=== PATIENT | female | born 1945 | race African-American/Black ===

== ENCOUNTER 2018-03-08 14:25 | Emergency (ER) | payer MEDICARE, MEDICAID ==
[~2018-03-08] VITALS: Ht 167.6 cm; Wt 130.0 kg
[~2018-03-08 14:25] MED LIST: AMLO5TAB88 PO; CALC0.253 PO; HYDR-1717; LOSA50TA20 PO
[2018-03-08] MEDS ORDERED: KETOROLAC 30MG/ML VIAL IV ONE (15:15)
[2018-03-08 15:42] LABS: BASOPHILS % 1.4 % (0.0-2.0); HEMATOCRIT. 34.2 % (36.0-48.0); HEMOGLOBIN. 10.9 g/dL (12.0-16.0); MEAN CORPUSCULAR HEMOGLOBIN 30.8 pg (28.0-32.0); MEAN CORPUSCULAR VOLUME 96.5 fL (81.0-99.0); MEAN PLATELET VOLUME 7.5 fl (7.4-10.4); MONOCYTES % 9.5 % (2.0-8.0); NEUTROPHILS % 45.1 % (40.0-76.0); PLATELET 319 x1000/uL (130-400); RED BLOOD CELL COUNT 3.55 mill/uL (4.2-5.4); RED CELL DISTRIBUTION WIDTH 18.7 % (11.6-14.6)
[2018-03-08 15:47] LABS: CHLORIDE 100 mEq/L (98-107)
[2018-03-08] MEDS ORDERED: KETOROLAC 60MG/2ML VIAL IM ONE (17:00)
[2018-03-08 19:54] VITALS: BP 140/64
== END 2018-03-08 20:00 ==
LOC: ER 14:45
DX: R51 Headache (principal); E87.5 Hyperkalemia; E11.22 Type 2 diabetes mellitus with diabetic chronic kidney disease; I12.0 Hypertensive chronic kidney disease with stage 5 chronic kidney disease or end stage renal disease; N18.6 End stage renal disease; J44.9 Chronic obstructive pulmonary disease, unspecified; I25.2 Old myocardial infarction; E88.09 Other disorders of plasma-protein metabolism, not elsewhere classified; H54.61 Unqualified visual loss, right eye, normal vision left eye; Z88.0 Allergy status to penicillin; Z99.2 Dependence on renal dialysis
CPT/HCPCS: 36415; 70450; 80053; 85025; 96372; 99285; J1885

== ENCOUNTER 2018-04-09 18:52 | Inpatient (IN) | payer MEDICARE, MEDICAID ==
[~2018-04-09] VITALS: Ht 167.6 cm; Wt 114.4 kg
[2018-04-09] MEDS ORDERED: SODIUM CHLORIDE 0.9% 250 ML IV ONE (18:54)
[2018-04-09 20:21] LABS: BG BASE EXCESS 2.1 mmol/L (-2.0-2.0); BG CARBOXYHEMOGLOBIN 0.3 % (0.5-1.5); BG DEOXYHEMOGLOBIN 1.4 % (0.0-5.0); BG FRACTION INSPIRED OXYGEN 28; BG HCO3 ACT 26.4 mmol/L (22.0-26.0); BG METHEMOGLOBIN 0.4 % (0.0-1.5); BG OXYGEN SATURATION 98.6 % (92.0-98.5); BG OXYHEMOGLOBIN 97.9 % (94.0-97.0); BG PCO2 40.1 mmHg (35.0-45.0); BG PH 7.437 (7.350-7.450); BG PO2 137.5 mmHg (75.0-100.0); BG SAMPLE SITE RIGHT RADIAL; BG TOTAL HEMOGLOBIN 10.8 g/dL (12.0-18.0); BG VENT MODE NASAL CANNULA
[2018-04-09 20:39] LABS: BASOPHILS % 0.6 % (0.0-2.0); EOSINOPHILS % 0.1 % (0.0-5.0); HEMATOCRIT. 29.9 % (36.0-48.0); HEMOGLOBIN. 9.5 g/dL (12.0-16.0); LYMPHOCYTES % 13.4 % (20.0-50.0); MEAN CORPUSCULAR VOLUME 94.7 fL (81.0-99.0); MEAN PLATELET VOLUME 7.8 fl (7.4-10.4); MONOCYTES % 7.3 % (2.0-8.0); NEUTROPHILS % 78.6 % (40.0-76.0); PLATELET 487 x1000/uL (130-400); RED BLOOD CELL COUNT 3.16 mill/uL (4.2-5.4); RED CELL DISTRIBUTION WIDTH 19.6 % (11.6-14.6)
[2018-04-09 20:44] LABS: CHLORIDE 96 mEq/L (98-107)
[2018-04-09 20:48] LABS: INR 1.1; PROTHROMBIN TIME 11.7 sec (9.4-11.6)
[2018-04-09 20:49] LABS: ETHANOL BLOOD < 10 mg/dL
[2018-04-09 20:50] LABS: AMMONIA 27 uMol/L (<32)
[2018-04-09 20:53] LABS: CREATINE KINASE 67 IU/L (26-192)
[2018-04-09] MEDS ORDERED: VANCOMYCIN 1 G PREMIX 200 ML IV SCH (21:15)
[2018-04-09] MEDS ORDERED: LEVOFLOXACIN 750MG PREMIX 150 ML IV ONE (21:15)
[2018-04-09] MEDS ORDERED: KCL 20MEQ/100ML PREMIX 100 ML IV ONE (21:15)
[2018-04-09] MEDS ORDERED: ASPIRIN 300MG SUPP PR ONE (21:15)
[2018-04-09] MEDS ORDERED: IPRATROPIUM/ALBUTEROL 0.5-3(2.5)MG/3ML NEB INH PRN (23:45)
[2018-04-09] MEDS ORDERED: CLONIDINE 0.1MG TABLET PO PRN (23:45)
[2018-04-09] MEDS ORDERED: ONDANSETRON HCL 4MG/2ML VIAL IV PRN (23:45)
[2018-04-09] MEDS ORDERED: DOCUSATE SODIUM 100MG CAPSULE PO PRN (23:45)
[2018-04-09] MEDS ORDERED: HYDROCODONE/ACETAMINOPHEN 5/325MG TABLET PO PRN (23:45)
[2018-04-09] MEDS ORDERED: LEVOFLOXACIN 500MG PREMIX 100 ML IV SCH (23:45)
[2018-04-10] VITALS (9 sets, daily range): BP systolic 79–117; BP diastolic 30–73
[2018-04-10] MEDS: ACETAMINOPHEN 325MG TABLET PO PRN (00:58)
[2018-04-10] MEDS ORDERED: DEXTROSE 50% WATER 50ML SYRINGE IV PRN (02:30)
[2018-04-10] MEDS ORDERED: VANCOMYCIN 500 MG PREMIX 100 ML IV NR (05:00)
[2018-04-10] MEDS: BLOOD SUGAR DIAGNOSTIC STRIP TEST SCH ×4 (05:51→21:18)
[2018-04-10] MEDS ORDERED: DIPHENHYDRAMINE 50MG/ML VIAL IV PRN (07:30)
[2018-04-10] MEDS ORDERED: MAGNESIUM/ALUMINUM HYDROXIDE/SIMETHICONE 30ML UDC PO PRN (07:30)
[2018-04-10] MEDS ORDERED: CLONIDINE 0.1MG TABLET PO PRN (07:30)
[2018-04-10] MEDS: INSULIN LISPRO 100 UNITS/ML SUBCUT SCH ×4 (08:00→21:00)
[2018-04-10 08:02] LABS: CHLORIDE 98 mEq/L (98-107)
[2018-04-10 08:07] LABS: BASOPHILS % 0.5 % (0.0-2.0); EOSINOPHILS % 0.1 % (0.0-5.0); HEMATOCRIT. 28.6 % (36.0-48.0); HEMOGLOBIN. 9.3 g/dL (12.0-16.0); LYMPHOCYTES % 16.4 % (20.0-50.0); MEAN CORPUSCULAR HEMOGLOBIN 30.8 pg (28.0-32.0); MEAN CORPUSCULAR VOLUME 94.8 fL (81.0-99.0); MEAN PLATELET VOLUME 7.9 fl (7.4-10.4); MONOCYTES % 8.4 % (2.0-8.0); NEUTROPHILS % 74.6 % (40.0-76.0); PLATELET 425 x1000/uL (130-400); RED BLOOD CELL COUNT 3.02 mill/uL (4.2-5.4); RED CELL DISTRIBUTION WIDTH 19.6 % (11.6-14.6)
[2018-04-10 08:10] LABS: CREATINE KINASE 46 IU/L (26-192); HDL CHOLESTEROL 49 mg/dL (40-59)
[2018-04-10 08:12] LABS: LDL CHOLESTEROL 46 mg/dL (5-100)
[2018-04-10 08:16] LABS: CREATINE KINASE MB FRACTION 2.8 ng/mL (0.5-3.6)
[2018-04-10] MEDS ORDERED: METOPROLOL TARTRATE 25MG TABLET PO SCH (09:00)
[2018-04-10] MEDS: ASPIRIN 81MG EC TABLET PO SCH (09:32)
[2018-04-10] MEDS: CLOPIDOGREL 75MG TABLET PO SCH (14:50)
[2018-04-10] MEDS: ENOXAPARIN 40MG/0.4ML SYR SUBCUT SCH (14:51)
[2018-04-10 14:55] LABS: PREALBUMIN 6.5 mg/dL (20.0-40.0)
[2018-04-10] MEDS: DOCUSATE SODIUM SUGAR FREE 100MG/10ML UDC PO SCH (17:00)
[2018-04-10] MEDS: METOPROLOL TARTRATE 25MG TABLET PO SCH (21:00)
[2018-04-10] MEDS: ATORVASTATIN CALCIUM 20MG TABLET PO SCH (21:36)
[2018-04-10] MEDS ORDERED: POTASSIUM CHLORIDE 10MEQ TABLET SR PO NR (23:43)
[2018-04-11] VITALS (9 sets, daily range): BP systolic 70–145; BP diastolic 30–75
[2018-04-11 06:14] LABS: BASOPHILS % 0.2 % (0.0-2.0); HEMATOCRIT. 29.8 % (36.0-48.0); HEMOGLOBIN. 9.5 g/dL (12.0-16.0); MEAN CORPUSCULAR HEMOGLOBIN 30.6 pg (28.0-32.0); MEAN CORPUSCULAR VOLUME 96.1 fL (81.0-99.0); MEAN PLATELET VOLUME 8.3 fl (7.4-10.4); MONOCYTES % 6.2 % (2.0-8.0); NEUTROPHILS % 81.6 % (40.0-76.0); PLATELET 379 x1000/uL (130-400); RED CELL DISTRIBUTION WIDTH 19.7 % (11.6-14.6)
[2018-04-11 06:22] LABS: CHLORIDE 98 mEq/L (98-107)
[2018-04-11] MEDS: BLOOD SUGAR DIAGNOSTIC STRIP TEST SCH ×4 (07:45→21:17)
[2018-04-11] MEDS: INSULIN LISPRO 100 UNITS/ML SUBCUT SCH ×4 (08:00→21:18)
[2018-04-11] MEDS: METOPROLOL TARTRATE 25MG TABLET PO SCH ×2 (08:48→21:00)
[2018-04-11] MEDS: DOCUSATE SODIUM SUGAR FREE 100MG/10ML UDC PO SCH ×2 (08:50→17:00)
[2018-04-11] MEDS: ASPIRIN 81MG EC TABLET PO SCH (08:50)
[2018-04-11] MEDS: CLOPIDOGREL 75MG TABLET PO SCH (08:54)
[2018-04-11] MEDS: ACETAMINOPHEN 325MG TABLET PO PRN (09:51)
[2018-04-11] MEDS: ENOXAPARIN 40MG/0.4ML SYR SUBCUT SCH (13:31)
[2018-04-11] MEDS: MIDODRINE HCL 5MG TABLET PO SCH ×2 (13:32→17:10)
[2018-04-11] MEDS ORDERED: LEVOFLOXACIN 500MG PREMIX 100 ML IV SCH (14:00)
[2018-04-11] MEDS ORDERED: VANCOMYCIN 1500MG in DEXTROSE 5% WATER 250ML IV NR (15:00)
[2018-04-11] MEDS ORDERED: NA PHOS,M-B/NA PHOS,DI-BA ENEMA 118ML PR NR (17:00)
[2018-04-11 19:39] LABS: ETHANOL BLOOD < 10 mg/dL
[2018-04-11 19:41] LABS: AMMONIA 56 uMol/L (<32)
[2018-04-11 19:44] LABS: T4 FREE 1.68 ng/dL (0.76-1.46)
[2018-04-11] MEDS: ATORVASTATIN CALCIUM 20MG TABLET PO SCH (21:12)
[2018-04-11] MEDS ORDERED: LEVOFLOXACIN 250MG PREMIX 50 ML IV SCH (23:00)
[2018-04-12] VITALS (12 sets, daily range): BP systolic 82–111; BP diastolic 35–70
[2018-04-12] MEDS: BLOOD SUGAR DIAGNOSTIC STRIP TEST SCH ×4 (07:30→21:58)
[2018-04-12] MEDS: INSULIN LISPRO 100 UNITS/ML SUBCUT SCH ×4 (08:28→21:00)
[2018-04-12] MEDS: METOPROLOL TARTRATE 25MG TABLET PO SCH (09:00)
[2018-04-12] MEDS: DOCUSATE SODIUM SUGAR FREE 100MG/10ML UDC PO SCH ×2 (09:04→17:52)
[2018-04-12] MEDS: CLOPIDOGREL 75MG TABLET PO SCH (09:05)
[2018-04-12] MEDS: ASPIRIN 81MG EC TABLET PO SCH (09:05)
[2018-04-12] MEDS: MIDODRINE HCL 5MG TABLET PO SCH ×3 (09:05→21:58)
[2018-04-12 13:18] LABS: BASOPHILS % 0.5 % (0.0-2.0); EOSINOPHILS % 0.1 % (0.0-5.0); HEMOGLOBIN. 8.9 g/dL (12.0-16.0); LYMPHOCYTES % 11.1 % (20.0-50.0); MEAN CORPUSCULAR HEMOGLOBIN 30.8 pg (28.0-32.0); MEAN CORPUSCULAR VOLUME 93.8 fL (81.0-99.0); MEAN PLATELET VOLUME 7.9 fl (7.4-10.4); MONOCYTES % 4.9 % (2.0-8.0); NEUTROPHILS % 83.4 % (40.0-76.0); PLATELET 348 x1000/uL (130-400); RED BLOOD CELL COUNT 2.88 mill/uL (4.2-5.4); RED CELL DISTRIBUTION WIDTH 19.4 % (11.6-14.6)
[2018-04-12 13:23] LABS: CHLORIDE 109 mEq/L (98-107)
[2018-04-12 13:28] LABS: AMMONIA 26 uMol/L (<32)
[2018-04-12 13:46] LABS: PHOSPHORUS 0.7 mg/dL (2.5-4.9)
[2018-04-12 14:07] LABS: VITAMIN B12 SERUM > 2000.0 pg/mL (211-911)
[2018-04-12] MEDS: ENOXAPARIN 40MG/0.4ML SYR SUBCUT SCH (14:25)
[2018-04-12] MEDS ORDERED: SODIUM PHOS,M-BASIC-D-BASIC 30 MM in SODIUM CHLORIDE 0.9% 500 ML IV NR (15:00)
[2018-04-12] MEDS ORDERED: SODIUM PHOS,M-BASIC-D-BASIC 30 MM in DEXT 5% WATER 500 ML IV NR (15:00)
[2018-04-12] MEDS: ATORVASTATIN CALCIUM 20MG TABLET PO SCH (21:58)
[2018-04-12] MEDS ORDERED: SODIUM PHOS,M-BASIC-D-BASIC 20 MM in DEXT 5% WATER 243.3333 ML IV NR (23:00)
[2018-04-13] VITALS (11 sets, daily range): BP systolic 75–115; BP diastolic 37–89
[2018-04-13] MEDS: BLOOD SUGAR DIAGNOSTIC STRIP TEST SCH ×4 (07:30→20:44)
[2018-04-13] MEDS: INSULIN LISPRO 100 UNITS/ML SUBCUT SCH ×4 (08:00→20:45)
[2018-04-13] MEDS: ASPIRIN 81MG EC TABLET PO SCH (09:50)
[2018-04-13] MEDS: DOCUSATE SODIUM SUGAR FREE 100MG/10ML UDC PO SCH (09:50)
[2018-04-13] MEDS: CLOPIDOGREL 75MG TABLET PO SCH (09:50)
[2018-04-13] MEDS: MIDODRINE HCL 5MG TABLET PO SCH ×3 (09:50→17:55)
[2018-04-13 10:59] LABS: BASOPHILS % 0.1 % (0.0-2.0); EOSINOPHILS % 0.2 % (0.0-5.0); HEMATOCRIT. 26.7 % (36.0-48.0); HEMOGLOBIN. 8.6 g/dL (12.0-16.0); LYMPHOCYTES % 15.3 % (20.0-50.0); MEAN CORPUSCULAR HEMOGLOBIN 30.3 pg (28.0-32.0); MEAN CORPUSCULAR VOLUME 94.5 fL (81.0-99.0); MEAN PLATELET VOLUME 7.7 fl (7.4-10.4); MONOCYTES % 4.6 % (2.0-8.0); NEUTROPHILS % 79.8 % (40.0-76.0); PLATELET 338 x1000/uL (130-400); RED BLOOD CELL COUNT 2.83 mill/uL (4.2-5.4); RED CELL DISTRIBUTION WIDTH 19.5 % (11.6-14.6)
[2018-04-13] MEDS: DOCUSATE SODIUM SUGAR FREE 100MG/10ML UDC NG SCH ×2 (11:00→17:55)
[2018-04-13 11:05] LABS: CHLORIDE 108 mEq/L (98-107)
[2018-04-13 11:10] LABS: PHOSPHORUS 3.6 mg/dL (2.5-4.9)
[2018-04-13] MEDS ORDERED: AZTREONAM 1 G in DEXTROSE 5% WATER 50 ML IV SCH ×2 (11:30→14:00)
[2018-04-13] MEDS ORDERED: HYDROCORTISONE ACETATE 25MG SUPP PR SCH (12:00)
[2018-04-13] MEDS: ENOXAPARIN 40MG/0.4ML SYR SUBCUT SCH (13:30)
[2018-04-13] MEDS ORDERED: BISACODYL 5MG TABLET PO PRN (16:15)
[2018-04-13] MEDS ORDERED: VANCOMYCIN 1500MG in DEXTROSE 5% WATER 250ML IV NR (18:00)
[2018-04-13] MEDS: ACETAMINOPHEN 325MG TABLET PO PRN (19:29)
[2018-04-13] MEDS: ATORVASTATIN CALCIUM 20MG TABLET PO SCH (20:27)
[2018-04-14] VITALS (46 sets, daily range): BP systolic 41–132; BP diastolic 25–90
[2018-04-14 07:30] LABS: BASOPHILS % 0.1 % (0.0-2.0); EOSINOPHILS % 0.1 % (0.0-5.0); HEMATOCRIT. 24.6 % (36.0-48.0); LYMPHOCYTES % 15.1 % (20.0-50.0); MEAN CORPUSCULAR HEMOGLOBIN 30.3 pg (28.0-32.0); MEAN PLATELET VOLUME 7.8 fl (7.4-10.4); MONOCYTES % 5.3 % (2.0-8.0); NEUTROPHILS % 79.4 % (40.0-76.0); PLATELET 297 x1000/uL (130-400); RED BLOOD CELL COUNT 2.64 mill/uL (4.2-5.4); RED CELL DISTRIBUTION WIDTH 18.8 % (11.6-14.6)
[2018-04-14] MEDS: BLOOD SUGAR DIAGNOSTIC STRIP TEST SCH ×4 (07:30→21:16)
[2018-04-14 07:37] LABS: CHLORIDE 104 mEq/L (98-107)
[2018-04-14] MEDS ORDERED: LIDOCAINE HCL/PF 1% 10 MG/ML 5ML VIAL ONE (07:56)
[2018-04-14] MEDS: ASPIRIN 81MG EC TABLET PO SCH (09:00)
[2018-04-14] MEDS: CLOPIDOGREL 75MG TABLET PO SCH (09:00)
[2018-04-14] MEDS: SORBITOL 70% SOLN 30ML PO PRN (10:18)
[2018-04-14] MEDS: DOCUSATE SODIUM SUGAR FREE 100MG/10ML UDC NG SCH (10:19)
[2018-04-14] MEDS: MIDODRINE HCL 5MG TABLET PO SCH ×3 (10:19→17:21)
[2018-04-14] MEDS: INSULIN LISPRO 100 UNITS/ML SUBCUT SCH ×4 (10:20→21:49)
[2018-04-14] MEDS ORDERED: SODIUM PHOS,M-BASIC-D-BASIC 20 MM in DEXT 5% WATER 243.3333 ML IV NR (13:00)
[2018-04-14] MEDS ORDERED: SODIUM CHLORIDE 0.9% 10ML VIAL ONE (13:54)
[2018-04-14] MEDS: AZTREONAM 500 MG in DEXTROSE 5% WATER 50 ML IV SCH ×2 (14:32→21:48)
[2018-04-14] MEDS: IPRATROPIUM/ALBUTEROL 0.5-3(2.5)MG/3ML NEB HHN SCH ×2 (14:45→20:11)
[2018-04-14] MEDS ORDERED: NOREPINEPHRINE 8 MG in DEXT 5% WATER 242 ML IV PRN (14:45)
[2018-04-14] MEDS ORDERED: MIDAZOLAM HCL 5 MG/5 ML VIAL ONE (15:52)
[2018-04-14] MEDS ORDERED: FENTANYL CITRATE/PF 50MCG/ML 2ML VIAL ONE (15:52)
[2018-04-14] MEDS ORDERED: SIMETHICONE 40 MG/0.6 ML 30ML ONE (15:52)
[2018-04-14 15:54] LABS: HEMATOCRIT 24.8 % (36.0-48.0)
[2018-04-14 16:05] LABS: BG BASE EXCESS 3.9 mmol/L (-2.0-2.0); BG DEOXYHEMOGLOBIN 0.5 % (0.0-5.0); BG FRACTION INSPIRED OXYGEN 100; BG HCO3 ACT 23.9 mmol/L (22.0-26.0); BG OXYGEN SATURATION 99.5 % (92.0-98.5); BG OXYHEMOGLOBIN 99.5 % (94.0-97.0); BG PCO2 22.7 mmHg (35.0-45.0); BG PH 7.641 (7.350-7.450); BG PO2 416.6 mmHg (75.0-100.0); BG SAMPLE SITE RIGHT BRACHIAL; BG TIDAL VOLUME(mL) 550 mL; BG TOTAL HEMOGLOBIN 10.3 g/dL (12.0-18.0); BG VENT MODE VENT - A/C; BG VENT RATE 14 set
[2018-04-14] MEDS ORDERED: MIDAZOLAM HCL 5 MG/5 ML VIAL IV PRN (16:07)
[2018-04-14] MEDS: PROPOFOL 10MG/ML 100ML 100 ML IV PRN (16:36)
[2018-04-14] MEDS: PANTOPRAZOLE SODIUM 40 MG/VIAL IV SCH ×2 (16:36→23:51)
[2018-04-14] MEDS ORDERED: VANCOMYCIN 1 G PREMIX 200 ML IV NR (18:00)
[2018-04-14] MEDS: DOPAMINE 400MG PREMIX 250 ML IV PRN (18:02)
[2018-04-14] MEDS: VASOPRESSIN 10 UNIT in SODIUM CHLORIDE 0.9% 99.5 ML IV PRN ×2 (18:04→22:08)
[2018-04-14 18:18] LABS: BG BASE EXCESS -7.3 mmol/L (-2.0-2.0); BG CARBOXYHEMOGLOBIN 0.3 % (0.5-1.5); BG DEOXYHEMOGLOBIN 1.7 % (0.0-5.0); BG FRACTION INSPIRED OXYGEN 50; BG HCO3 ACT 15.6 mmol/L (22.0-26.0); BG METHEMOGLOBIN 0.1 % (0.0-1.5); BG OXYGEN SATURATION 98.3 % (92.0-98.5); BG OXYHEMOGLOBIN 97.9 % (94.0-97.0); BG PCO2 23.5 mmHg (35.0-45.0); BG PO2 131.2 mmHg (75.0-100.0); BG SAMPLE SITE RIGHT RADIAL; BG TIDAL VOLUME(mL) 550 mL; BG TOTAL HEMOGLOBIN 9.2 g/dL (12.0-18.0); BG VENT MODE VENT - A/C; BG VENT RATE 12 set
[2018-04-14] MEDS: SUCRALFATE 1 G/10 ML UDC PO SCH ×2 (18:34→23:51)
[2018-04-14 19:53] LABS: BASOPHILS % 0.2 % (0.0-2.0); EOSINOPHILS % 0.1 % (0.0-5.0); HEMATOCRIT. 27.8 % (36.0-48.0); HEMOGLOBIN. 8.8 g/dL (12.0-16.0); MEAN CORPUSCULAR HEMOGLOBIN 30.3 pg (28.0-32.0); MEAN CORPUSCULAR VOLUME 95.5 fL (81.0-99.0); MEAN PLATELET VOLUME 8.2 fl (7.4-10.4); MONOCYTES % 4.2 % (2.0-8.0); NEUTROPHILS % 87.5 % (40.0-76.0); PLATELET 308 x1000/uL (130-400); RED BLOOD CELL COUNT 2.91 mill/uL (4.2-5.4); RED CELL DISTRIBUTION WIDTH 19.3 % (11.6-14.6)
[2018-04-14] MEDS: NOREPINEPHRINE 16 MG in DEXT 5% WATER 234 ML IV PRN (19:56)
[2018-04-14 19:59] LABS: CHLORIDE 100 mEq/L (98-107)
[2018-04-14 20:00] LABS: INR 1.1; PROTHROMBIN TIME 11.7 sec (9.4-11.6)
[2018-04-14 20:45] LABS: CREATINE KINASE MB FRACTION 1.1 ng/mL (0.5-3.6)
[2018-04-14] MEDS: ATORVASTATIN CALCIUM 20MG TABLET PO SCH (21:48)
[2018-04-15] VITALS (90 sets, daily range): BP systolic 41–165; BP diastolic 26–89
[2018-04-15] MEDS: PROPOFOL 10MG/ML 100ML 100 ML IV PRN (02:08)
[2018-04-15] MEDS: VASOPRESSIN 10 UNIT in SODIUM CHLORIDE 0.9% 99.5 ML IV PRN ×6 (02:08→23:33)
[2018-04-15] MEDS: IPRATROPIUM/ALBUTEROL 0.5-3(2.5)MG/3ML NEB HHN SCH ×4 (02:08→20:46)
[2018-04-15] MEDS: NOREPINEPHRINE 16 MG in DEXT 5% WATER 234 ML IV PRN ×3 (03:58→21:55)
[2018-04-15] MEDS: SUCRALFATE 1 G/10 ML UDC PO SCH ×4 (05:23→23:36)
[2018-04-15 05:44] LABS: BASOPHILS % 0.4 % (0.0-2.0); EOSINOPHILS % 0.4 % (0.0-5.0); HEMOGLOBIN. 8.9 g/dL (12.0-16.0); LYMPHOCYTES % 11.7 % (20.0-50.0); MEAN CORPUSCULAR HEMOGLOBIN 30.2 pg (28.0-32.0); MEAN CORPUSCULAR VOLUME 92.1 fL (81.0-99.0); MEAN PLATELET VOLUME 8.5 fl (7.4-10.4); MONOCYTES % 4.9 % (2.0-8.0); NEUTROPHILS % 82.6 % (40.0-76.0); PLATELET 339 x1000/uL (130-400); RED BLOOD CELL COUNT 2.94 mill/uL (4.2-5.4); RED CELL DISTRIBUTION WIDTH 18.5 % (11.6-14.6)
[2018-04-15 05:46] LABS: INR 1.1; PROTHROMBIN TIME 11.7 sec (9.4-11.6)
[2018-04-15] MEDS: BLOOD SUGAR DIAGNOSTIC STRIP TEST SCH ×4 (06:03→21:54)
[2018-04-15] MEDS: INSULIN LISPRO 100 UNITS/ML SUBCUT SCH ×4 (06:10→21:57)
[2018-04-15 06:28] LABS: CREATINE KINASE MB FRACTION 1.2 ng/mL (0.5-3.6)
[2018-04-15 07:53] LABS: BG CARBOXYHEMOGLOBIN 0.3 % (0.5-1.5); BG DEOXYHEMOGLOBIN 0.8 % (0.0-5.0); BG FRACTION INSPIRED OXYGEN 50; BG HCO3 ACT 21.2 mmol/L (22.0-26.0); BG OXYGEN SATURATION 99.2 % (92.0-98.5); BG OXYHEMOGLOBIN 98.9 % (94.0-97.0); BG PCO2 27.1 mmHg (35.0-45.0); BG PH 7.512 (7.350-7.450); BG PO2 207.7 mmHg (75.0-100.0); BG SAMPLE SITE RIGHT BRACHIAL; BG TIDAL VOLUME(mL) 550 mL; BG TOTAL HEMOGLOBIN 9.8 g/dL (12.0-18.0); BG VENT MODE VENT - A/C; BG VENT RATE 12 set
[2018-04-15] MEDS: PHENYLEPHRINE 10 MG in DEXT 5% WATER 249 ML IV PRN ×2 (07:59→09:43)
[2018-04-15] MEDS ORDERED: FENTANYL CITRATE/PF 500 MCG in SODIUM CHLORIDE 0.9% 40 ML IV PRN (08:00)
[2018-04-15] MEDS: MIDODRINE HCL 5MG TABLET PO SCH ×3 (09:18→17:47)
[2018-04-15] MEDS: MIDAZOLAM HCL 100 MG in DEXT 5% WATER 80 ML IV PRN (09:20)
[2018-04-15] MEDS ORDERED: HEPARIN SODIUM 1,000 UNIT/1ML VIAL IV NR (09:55)
[2018-04-15] MEDS: PHENYLEPHRINE 80 MG in DEXT 5% WATER 500 ML IV PRN ×2 (10:57→17:57)
[2018-04-15] MEDS: PANTOPRAZOLE SODIUM 40 MG/VIAL IV SCH ×2 (11:04→21:05)
[2018-04-15] MEDS: AZTREONAM 500 MG in DEXTROSE 5% WATER 50 ML IV SCH ×2 (11:05→21:05)
[2018-04-15 14:25] LABS: HEMATOCRIT 31.7 % (36.0-48.0); HEMOGLOBIN 10.4 g/dL (12.0-16.0)
[2018-04-15] MEDS ORDERED: METRONIDAZOLE 500 MG PREMIX 100 ML IV SCH (14:30)
[2018-04-15 14:44] LABS: CREATINE KINASE MB FRACTION 1.1 ng/mL (0.5-3.6)
[2018-04-15] MEDS: METRONIDAZOLE 500 MG PREMIX 100 ML IV SCH ×2 (17:47→23:36)
[2018-04-15 19:35] LABS: HEMOGLOBIN 8.6 g/dL (12.0-16.0)
[2018-04-15] MEDS: PHENYLEPHRINE 80 MG in DEXT 5% WATER 492 ML IV PRN (21:00)
[2018-04-15] MEDS: ATORVASTATIN CALCIUM 20MG TABLET PO SCH (21:05)
[2018-04-16] VITALS (100 sets, daily range): BP systolic 53–154; BP diastolic 25–107
[2018-04-16] MEDS ORDERED: PHENYLEPHRINE 80 MG in DEXT 5% WATER 500 ML IV PRN (00:01)
[2018-04-16] MEDS: IPRATROPIUM/ALBUTEROL 0.5-3(2.5)MG/3ML NEB HHN SCH ×4 (01:33→19:51)
[2018-04-16] MEDS: PHENYLEPHRINE 80 MG in DEXT 5% WATER 492 ML IV PRN (02:20)
[2018-04-16] MEDS: NOREPINEPHRINE 16 MG in DEXT 5% WATER 234 ML IV PRN (03:10)
[2018-04-16] MEDS: VASOPRESSIN 10 UNIT in SODIUM CHLORIDE 0.9% 99.5 ML IV PRN ×2 (04:13→09:00)
[2018-04-16 05:37] LABS: BASOPHILS % 0.3 % (0.0-2.0); HEMOGLOBIN. 8.5 g/dL (12.0-16.0); LYMPHOCYTES % 8.4 % (20.0-50.0); MEAN CORPUSCULAR HEMOGLOBIN 29.7 pg (28.0-32.0); MEAN CORPUSCULAR VOLUME 94.4 fL (81.0-99.0); MEAN PLATELET VOLUME 9.2 fl (7.4-10.4); MONOCYTES % 6.3 % (2.0-8.0); PLATELET 205 x1000/uL (130-400); RED BLOOD CELL COUNT 2.86 mill/uL (4.2-5.4)
[2018-04-16 06:10] LABS: CHLORIDE 96 mEq/L (98-107)
[2018-04-16 06:20] LABS: PHOSPHORUS 2.1 mg/dL (2.5-4.9)
[2018-04-16] MEDS: SUCRALFATE 1 G/10 ML UDC PO SCH ×3 (06:21→17:11)
[2018-04-16] MEDS: BLOOD SUGAR DIAGNOSTIC STRIP TEST SCH ×4 (06:21→21:25)
[2018-04-16] MEDS: INSULIN LISPRO 100 UNITS/ML SUBCUT SCH ×4 (06:58→21:23)
[2018-04-16] MEDS: MIDAZOLAM HCL 100 MG in DEXT 5% WATER 80 ML IV PRN (07:36)
[2018-04-16 08:05] LABS: BG BASE EXCESS -4.2 mmol/L (-2.0-2.0); BG CARBOXYHEMOGLOBIN 0.3 % (0.5-1.5); BG DEOXYHEMOGLOBIN 1.4 % (0.0-5.0); BG FRACTION INSPIRED OXYGEN 40; BG HCO3 ACT 18.6 mmol/L (22.0-26.0); BG METHEMOGLOBIN 1.3 % (0.0-1.5); BG OXYGEN SATURATION 98.6 % (92.0-98.5); BG PCO2 25.8 mmHg (35.0-45.0); BG PH 7.476 (7.350-7.450); BG PO2 160.5 mmHg (75.0-100.0); BG SAMPLE SITE RIGHT RADIAL; BG TIDAL VOLUME(mL) 550 mL; BG TOTAL HEMOGLOBIN 8.3 g/dL (12.0-18.0); BG VENT MODE VENT - A/C; BG VENT RATE 12 set
[2018-04-16] MEDS: METRONIDAZOLE 500 MG PREMIX 100 ML IV SCH ×2 (08:54→17:06)
[2018-04-16] MEDS: MIDODRINE HCL 5MG TABLET PO SCH ×3 (08:54→17:11)
[2018-04-16] MEDS: AZTREONAM 500 MG in DEXTROSE 5% WATER 50 ML IV SCH ×2 (08:54→21:25)
[2018-04-16] MEDS: PANTOPRAZOLE SODIUM 40 MG/VIAL IV SCH ×2 (08:54→21:22)
[2018-04-16] MEDS ORDERED: ALBUMIN HUMAN 25GM/100ML (25%) IV NR (10:00)
[2018-04-16] MEDS: NOREPINEPHRINE 32 MG in SODIUM CHLORIDE 0.9% 468 ML IV PRN (12:27)
[2018-04-16] MEDS: PHENYLEPHRINE 80 MG in SODIUM CHLORIDE 0.9% 492 ML IV PRN (12:28)
[2018-04-16] MEDS: HYDROCORTISONE ACETATE 25MG SUPP PR SCH (18:54)
[2018-04-16] MEDS: ATORVASTATIN CALCIUM 20MG TABLET PO SCH (21:22)
[2018-04-17] VITALS (108 sets, daily range): BP systolic 42–143; BP diastolic 27–117
[2018-04-17] MEDS: SUCRALFATE 1 G/10 ML UDC PO SCH ×5 (00:01→23:43)
[2018-04-17] MEDS: METRONIDAZOLE 500 MG PREMIX 100 ML IV SCH ×4 (00:01→23:36)
[2018-04-17] MEDS: PHENYLEPHRINE 80 MG in SODIUM CHLORIDE 0.9% 492 ML IV PRN ×3 (01:48→20:23)
[2018-04-17] MEDS: IPRATROPIUM/ALBUTEROL 0.5-3(2.5)MG/3ML NEB HHN SCH ×4 (02:01→20:56)
[2018-04-17 05:33] LABS: BASOPHILS % 0.2 % (0.0-2.0); EOSINOPHILS % 0.3 % (0.0-5.0); LYMPHOCYTES % 12.3 % (20.0-50.0); MEAN CORPUSCULAR HEMOGLOBIN 30.2 pg (28.0-32.0); MEAN CORPUSCULAR VOLUME 91.9 fL (81.0-99.0); MEAN PLATELET VOLUME 9.4 fl (7.4-10.4); MONOCYTES % 4.3 % (2.0-8.0); NEUTROPHILS % 82.9 % (40.0-76.0); PLATELET 155 x1000/uL (130-400); RED BLOOD CELL COUNT 2.25 mill/uL (4.2-5.4); RED CELL DISTRIBUTION WIDTH 18.3 % (11.6-14.6)
[2018-04-17 06:11] LABS: PHOSPHORUS 1.2 mg/dL (2.5-4.9)
[2018-04-17] MEDS: BLOOD SUGAR DIAGNOSTIC STRIP TEST SCH ×4 (06:23→20:41)
[2018-04-17 06:30] LABS: HEMATOCRIT. 20.7 % (36.0-48.0); HEMOGLOBIN. 6.8 g/dL (12.0-16.0)
[2018-04-17] MEDS: INSULIN LISPRO 100 UNITS/ML SUBCUT SCH ×4 (06:41→20:41)
[2018-04-17] MEDS ORDERED: SODIUM PHOS,M-BASIC-D-BASIC 30 MM in DEXT 5% WATER 500 ML IV SCH (10:00)
[2018-04-17] MEDS: MIDODRINE HCL 5MG TABLET PO SCH ×3 (10:41→18:37)
[2018-04-17] MEDS: HYDROCORTISONE ACETATE 25MG SUPP PR SCH (10:41)
[2018-04-17] MEDS: PANTOPRAZOLE SODIUM 40 MG/VIAL IV SCH ×2 (10:41→20:25)
[2018-04-17] MEDS: AZTREONAM 500 MG in DEXTROSE 5% WATER 50 ML IV SCH ×2 (10:41→20:22)
[2018-04-17 11:08] LABS: BG BASE EXCESS -0.3 mmol/L (-2.0-2.0); BG CARBOXYHEMOGLOBIN 0.5 % (0.5-1.5); BG DEOXYHEMOGLOBIN 1.4 % (0.0-5.0); BG FRACTION INSPIRED OXYGEN 30; BG METHEMOGLOBIN 0.3 % (0.0-1.5); BG OXYGEN SATURATION 98.6 % (92.0-98.5); BG OXYHEMOGLOBIN 97.8 % (94.0-97.0); BG PCO2 27.6 mmHg (35.0-45.0); BG PH 7.519 (7.350-7.450); BG PO2 120.3 mmHg (75.0-100.0); BG SAMPLE SITE RIGHT RADIAL; BG TIDAL VOLUME(mL) 550 mL; BG TOTAL HEMOGLOBIN 9.2 g/dL (12.0-18.0); BG VENT MODE VENT - A/C; BG VENT RATE 12 set
[2018-04-17] MEDS: NOREPINEPHRINE 32 MG in SODIUM CHLORIDE 0.9% 468 ML IV PRN (12:10)
[2018-04-17] MEDS: ACETAMINOPHEN 325MG TABLET PO PRN (13:04)
[2018-04-17] MEDS ORDERED: VANCOMYCIN 750 MG PREMIX 150 ML IV NR (16:00)
[2018-04-17] MEDS: METOCLOPRAMIDE HCL 5MG TABLET PO SCH ×2 (18:00→23:43)
[2018-04-17] MEDS: ATORVASTATIN CALCIUM 20MG TABLET PO SCH (20:25)
[2018-04-18] VITALS (95 sets, daily range): BP systolic 60–150; BP diastolic 31–109
[2018-04-18] MEDS: ACETAMINOPHEN 325MG TABLET PO PRN (01:03)
[2018-04-18] MEDS: IPRATROPIUM/ALBUTEROL 0.5-3(2.5)MG/3ML NEB HHN SCH ×4 (01:27→20:28)
[2018-04-18] MEDS: PHENYLEPHRINE 80 MG in SODIUM CHLORIDE 0.9% 492 ML IV PRN ×3 (04:28→20:24)
[2018-04-18] MEDS: NOREPINEPHRINE 32 MG in SODIUM CHLORIDE 0.9% 468 ML IV PRN ×2 (05:16→19:48)
[2018-04-18 05:59] LABS: BASOPHILS % 0.2 % (0.0-2.0); EOSINOPHILS % 0.3 % (0.0-5.0); HEMATOCRIT. 24.4 % (36.0-48.0); LYMPHOCYTES % 12.7 % (20.0-50.0); MEAN CORPUSCULAR HEMOGLOBIN 28.1 pg (28.0-32.0); MEAN CORPUSCULAR VOLUME 85.5 fL (81.0-99.0); MEAN PLATELET VOLUME 9.3 fl (7.4-10.4); MONOCYTES % 4.7 % (2.0-8.0); NEUTROPHILS % 82.1 % (40.0-76.0); PLATELET 141 x1000/uL (130-400); RED BLOOD CELL COUNT 2.86 mill/uL (4.2-5.4); RED CELL DISTRIBUTION WIDTH 24.5 % (11.6-14.6)
[2018-04-18] MEDS: BLOOD SUGAR DIAGNOSTIC STRIP TEST SCH ×4 (06:06→20:37)
[2018-04-18] MEDS: SUCRALFATE 1 G/10 ML UDC PO SCH ×4 (06:06→23:20)
[2018-04-18] MEDS: METOCLOPRAMIDE HCL 5MG TABLET PO SCH ×4 (06:06→23:20)
[2018-04-18] MEDS: INSULIN LISPRO 100 UNITS/ML SUBCUT SCH ×4 (06:09→20:48)
[2018-04-18 06:10] LABS: PHOSPHORUS 2.6 mg/dL (2.5-4.9)
[2018-04-18] MEDS: MIDODRINE HCL 5MG TABLET PO SCH ×3 (08:05→17:10)
[2018-04-18] MEDS: METRONIDAZOLE 500 MG PREMIX 100 ML IV SCH ×3 (08:05→23:20)
[2018-04-18] MEDS: PANTOPRAZOLE SODIUM 40 MG/VIAL IV SCH ×2 (08:05→21:31)
[2018-04-18] MEDS: HYDROCORTISONE ACETATE 25MG SUPP PR SCH (08:06)
[2018-04-18 08:47] LABS: BG BASE EXCESS -3.7 mmol/L (-2.0-2.0); BG CARBOXYHEMOGLOBIN 0.6 % (0.5-1.5); BG FRACTION INSPIRED OXYGEN 30; BG HCO3 ACT 19.6 mmol/L (22.0-26.0); BG METHEMOGLOBIN 0.4 % (0.0-1.5); BG PCO2 28.7 mmHg (35.0-45.0); BG PH 7.452 (7.350-7.450); BG PO2 178.4 mmHg (75.0-100.0); BG SAMPLE SITE LEFT RADIAL; BG TIDAL VOLUME(mL) 550 mL; BG TOTAL HEMOGLOBIN 8.5 g/dL (12.0-18.0); BG VENT MODE VENT - A/C; BG VENT RATE 12 set
[2018-04-18] MEDS: AZTREONAM 500 MG in DEXTROSE 5% WATER 50 ML IV SCH ×2 (09:41→21:31)
[2018-04-18] MEDS: VASOPRESSIN 10 UNIT in SODIUM CHLORIDE 0.9% 99.5 ML IV PRN ×2 (10:56→19:49)
[2018-04-18] MEDS ORDERED: KCL 20MEQ/100ML PREMIX 100 ML IV SCH (11:00)
[2018-04-18] MEDS ORDERED: DIGOXIN 500MCG/2ML AMP IV NR (21:15)
[2018-04-18] MEDS: ATORVASTATIN CALCIUM 20MG TABLET PO SCH (21:31)
[2018-04-19] VITALS (91 sets, daily range): BP systolic 42–139; BP diastolic 16–90
[2018-04-19] MEDS: IPRATROPIUM/ALBUTEROL 0.5-3(2.5)MG/3ML NEB HHN SCH ×3 (01:45→20:14)
[2018-04-19] MEDS: BLOOD SUGAR DIAGNOSTIC STRIP TEST SCH ×4 (06:06→21:00)
[2018-04-19] MEDS: METOCLOPRAMIDE HCL 5MG TABLET PO SCH ×3 (06:06→18:34)
[2018-04-19] MEDS: SUCRALFATE 1 G/10 ML UDC PO SCH ×3 (06:06→18:33)
[2018-04-19] MEDS: INSULIN LISPRO 100 UNITS/ML SUBCUT SCH ×4 (06:07→21:00)
[2018-04-19 06:20] LABS: BASOPHILS % 0.1 % (0.0-2.0); EOSINOPHILS % 0.2 % (0.0-5.0); HEMATOCRIT. 24.6 % (36.0-48.0); HEMOGLOBIN. 7.9 g/dL (12.0-16.0); LYMPHOCYTES % 9.2 % (20.0-50.0); MEAN CORPUSCULAR HEMOGLOBIN 28.1 pg (28.0-32.0); MEAN CORPUSCULAR VOLUME 88.1 fL (81.0-99.0); MEAN PLATELET VOLUME 9.7 fl (7.4-10.4); MONOCYTES % 4.8 % (2.0-8.0); NEUTROPHILS % 85.7 % (40.0-76.0); PLATELET 211 x1000/uL (130-400); RED BLOOD CELL COUNT 2.79 mill/uL (4.2-5.4); RED CELL DISTRIBUTION WIDTH 24.5 % (11.6-14.6)
[2018-04-19 06:31] LABS: PHOSPHORUS 2.4 mg/dL (2.5-4.9)
[2018-04-19 07:53] LABS: BG BASE EXCESS -7.3 mmol/L (-2.0-2.0); BG CARBOXYHEMOGLOBIN 0.8 % (0.5-1.5); BG DEOXYHEMOGLOBIN 0.6 % (0.0-5.0); BG FRACTION INSPIRED OXYGEN 40; BG METHEMOGLOBIN 0.4 % (0.0-1.5); BG OXYGEN SATURATION 99.4 % (92.0-98.5); BG OXYHEMOGLOBIN 98.2 % (94.0-97.0); BG PCO2 24.9 mmHg (35.0-45.0); BG PH 7.426 (7.350-7.450); BG PO2 198.4 mmHg (75.0-100.0); BG SAMPLE SITE LEFT RADIAL; BG TIDAL VOLUME(mL) 550 mL; BG TOTAL HEMOGLOBIN 8.3 g/dL (12.0-18.0); BG VENT MODE VENT - A/C; BG VENT RATE 12 set
[2018-04-19] MEDS ORDERED: ALBUMIN HUMAN 25GM/100ML (25%) IV SCH (09:00)
[2018-04-19] MEDS: METRONIDAZOLE 500 MG PREMIX 100 ML IV SCH ×2 (09:18→16:48)
[2018-04-19] MEDS: PHENYLEPHRINE 80 MG in SODIUM CHLORIDE 0.9% 492 ML IV PRN ×2 (09:57→14:49)
[2018-04-19] MEDS: AZTREONAM 500 MG in DEXTROSE 5% WATER 50 ML IV SCH (09:58)
[2018-04-19] MEDS: NOREPINEPHRINE 32 MG in SODIUM CHLORIDE 0.9% 468 ML IV PRN (09:58)
[2018-04-19] MEDS: VASOPRESSIN 10 UNIT in SODIUM CHLORIDE 0.9% 99.5 ML IV PRN ×3 (09:59→19:14)
[2018-04-19] MEDS: SORBITOL 70% SOLN 30ML PO PRN (10:26)
[2018-04-19] MEDS: PANTOPRAZOLE SODIUM 40 MG/VIAL IV SCH ×2 (10:26→23:38)
[2018-04-19] MEDS: MIDODRINE HCL 5MG TABLET PO SCH ×3 (10:26→18:34)
[2018-04-19] MEDS: ACETAMINOPHEN 325MG TABLET PO PRN ×3 (10:38→23:38)
[2018-04-19] MEDS: DOPAMINE 400MG PREMIX 250 ML IV PRN ×5 (11:09→23:47)
[2018-04-19] MEDS: AMIODARONE HCL 900 MG in DEXT 5% WATER 500 ML IV SCH ×2 (11:10→11:49)
[2018-04-19 12:06] LABS: BG BASE EXCESS -10.1 mmol/L (-2.0-2.0); BG CARBOXYHEMOGLOBIN 0.7 % (0.5-1.5); BG DEOXYHEMOGLOBIN 0.4 % (0.0-5.0); BG HCO3 ACT 14.5 mmol/L (22.0-26.0); BG METHEMOGLOBIN 0.3 % (0.0-1.5); BG OXYGEN SATURATION 99.6 % (92.0-98.5); BG OXYHEMOGLOBIN 98.6 % (94.0-97.0); BG PCO2 26.7 mmHg (35.0-45.0); BG PH 7.353 (7.350-7.450); BG PO2 345.6 mmHg (75.0-100.0); BG SAMPLE SITE RIGHT RADIAL; BG TIDAL VOLUME(mL) 550 mL; BG TOTAL HEMOGLOBIN 6.7 g/dL (12.0-18.0); BG VENT MODE VENT - A/C; BG VENT RATE 12 set
[2018-04-19 13:54] LABS: PLATELET ESTIMATE NORMAL
[2018-04-19] MEDS ORDERED: SUCCINYLCHOLINE CHLORIDE 200MG/10ML VIAL IV ONE (14:14)
[2018-04-19] MEDS ORDERED: ETOMIDATE 2MG/ML 10ML VIAL IV ONE (14:14)
[2018-04-19] MEDS ORDERED: EPINEPHRINE 0.1MG/ML (1:10,000) 10ML SYR ONE ×2 (14:27→14:32)
[2018-04-19] MEDS ORDERED: SODIUM BICARBONATE 7.5% 0.9 MEQ/ML 50ML SYR IV ONE (14:32)
[2018-04-19] MEDS ORDERED: CALCIUM CHLORIDE 1GM/10ML SYR IV ONE (14:32)
[2018-04-19] MEDS ORDERED: AMIODARONE HCL 50MG/ML 3ML VIAL IV ONE (14:32)
[2018-04-19 16:42] LABS: HEMATOCRIT 22.3 % (36.0-48.0); MEAN CORPUSCULAR VOLUME 90.5 fL (81.0-99.0); PLATELET 248 x1000/uL (130-400); RED BLOOD CELL COUNT 2.47 mill/uL (4.2-5.4); RED CELL DISTRIBUTION WIDTH 25.5 % (11.6-14.6)
[2018-04-19 16:46] LABS: CHLORIDE 107 mEq/L (98-107)
[2018-04-19 16:56] LABS: HEMOGLOBIN 6.9 g/dL (12.0-16.0)
[2018-04-19] MEDS ORDERED: DIGOXIN 500MCG/2ML AMP IV ONE (18:00)
[2018-04-19] MEDS ORDERED: AMIKACIN SULFATE IV NR (19:30)
[2018-04-19] MEDS ORDERED: SODIUM CHLORIDE 0.9% IV NR (19:30)
[2018-04-19 19:45] LABS: CREATINE KINASE MB FRACTION 5.2 ng/mL (0.5-3.6)
[2018-04-19] MEDS: ATORVASTATIN CALCIUM 20MG TABLET PO SCH (23:39)
[2018-04-20] VITALS (50 sets, daily range): BP systolic 47–127; BP diastolic 25–76
[2018-04-20] MEDS: SUCRALFATE 1 G/10 ML UDC PO SCH ×4 (00:02→17:57)
[2018-04-20] MEDS: METOCLOPRAMIDE HCL 5MG TABLET PO SCH ×4 (00:02→17:48)
[2018-04-20] MEDS: VASOPRESSIN 10 UNIT in SODIUM CHLORIDE 0.9% 99.5 ML IV PRN ×4 (00:42→15:38)
[2018-04-20] MEDS: PHENYLEPHRINE 80 MG in SODIUM CHLORIDE 0.9% 492 ML IV PRN ×3 (01:02→15:41)
[2018-04-20] MEDS: AZTREONAM 500 MG in DEXTROSE 5% WATER 50 ML IV SCH ×2 (01:04→09:20)
[2018-04-20] MEDS: DOPAMINE 400MG PREMIX 250 ML IV PRN ×5 (01:22→08:06)
[2018-04-20] MEDS: IPRATROPIUM/ALBUTEROL 0.5-3(2.5)MG/3ML NEB HHN SCH ×4 (02:20→20:39)
[2018-04-20] MEDS: METRONIDAZOLE 500 MG PREMIX 100 ML IV SCH ×3 (03:29→17:47)
[2018-04-20 06:42] LABS: HEMATOCRIT. 21.7 % (36.0-48.0); MEAN CORPUSCULAR HEMOGLOBIN 28.5 pg (28.0-32.0); MEAN CORPUSCULAR VOLUME 99.4 fL (81.0-99.0); MEAN PLATELET VOLUME 10.4 fl (7.4-10.4); PLATELET 251 x1000/uL (130-400); RED BLOOD CELL COUNT 2.18 mill/uL (4.2-5.4); RED CELL DISTRIBUTION WIDTH 26.8 % (11.6-14.6)
[2018-04-20] MEDS: NOREPINEPHRINE 32 MG in SODIUM CHLORIDE 0.9% 468 ML IV PRN (06:52)
[2018-04-20 07:11] LABS: HEMOGLOBIN. 6.2 g/dL (12.0-16.0)
[2018-04-20] MEDS: BLOOD SUGAR DIAGNOSTIC STRIP TEST SCH ×4 (07:30→20:17)
[2018-04-20] MEDS: INSULIN LISPRO 100 UNITS/ML SUBCUT SCH ×3 (07:36→17:58)
[2018-04-20] MEDS: ACETAMINOPHEN 325MG TABLET PO PRN ×2 (09:21→15:37)
[2018-04-20] MEDS: MIDODRINE HCL 5MG TABLET PO SCH ×3 (09:21→17:48)
[2018-04-20] MEDS: PANTOPRAZOLE SODIUM 40 MG/VIAL IV SCH (09:21)
[2018-04-20] MEDS: DOPAMINE 800MG PREMIX 250 ML IV PRN ×4 (11:15→17:49)
[2018-04-20 13:58] LABS: PLATELET ESTIMATE NORMAL
[2018-04-20] MEDS ORDERED: AMIODARONE HCL 200 MG TABLET PO SCH (21:00)
[2018-04-26 07:13] LABS: BARBITURATE SCREEN Negative ug/mL (Cutoff:0.1); BENZODIAZEPINE SCREEN Negative ng/mL (Cutoff:20); OPIATES SCREEN Negative ng/mL (Cutoff:5); PHENCYCLIDINE SCREEN Negative ng/mL (Cutoff:8)
== END 2018-04-20 20:59 | disposition expired | DRG 870 ==
LOC: ER 19:02 → 5EST 21:43 → ENRESERV 23:00 → MICUNO 04-14 14:17
PROVIDERS: ADMIT Internal Medicine; ATTEND Internal Medicine
PROC: 5A1D70Z Performance of Urinary Filtration, Intermittent, Less than 6 Hours Per Day (ICD-10-PCS; 2018-04-11)
PROC: 4A00X4Z Measurement of Central Nervous Electrical Activity, External Approach (ICD-10-PCS; principal; 2018-04-13)
PROC: 5A1D70Z Performance of Urinary Filtration, Intermittent, Less than 6 Hours Per Day (ICD-10-PCS; 2018-04-13)
PROC: 5A1955Z Respiratory Ventilation, Greater than 96 Consecutive Hours (ICD-10-PCS; 2018-04-14)
PROC: 0DB68ZX Excision of Stomach, Via Natural or Artificial Opening Endoscopic, Diagnostic (ICD-10-PCS; 2018-04-14)
PROC: 0BH17EZ Insertion of Endotracheal Airway into Trachea, Via Natural or Artificial Opening (ICD-10-PCS; 2018-04-14)
PROC: 02HV33Z Insertion of Infusion Device into Superior Vena Cava, Percutaneous Approach (ICD-10-PCS; 2018-04-14)
PROC: B548ZZA Ultrasonography of Superior Vena Cava, Guidance (ICD-10-PCS; 2018-04-14)
PROC: 5A1D70Z Performance of Urinary Filtration, Intermittent, Less than 6 Hours Per Day (ICD-10-PCS; 2018-04-15)
PROC: 30233N1 Transfusion of Nonautologous Red Blood Cells into Peripheral Vein, Percutaneous Approach (ICD-10-PCS; 2018-04-17)
PROC: 5A1D70Z Performance of Urinary Filtration, Intermittent, Less than 6 Hours Per Day (ICD-10-PCS; 2018-04-17)
PROC: 5A1D70Z Performance of Urinary Filtration, Intermittent, Less than 6 Hours Per Day (ICD-10-PCS; 2018-04-19)
DX: A41.9 Sepsis, unspecified organism (principal); E43 Unspecified severe protein-calorie malnutrition; L89.323 Pressure ulcer of left buttock, stage 3; G92 Toxic encephalopathy; N18.6 End stage renal disease; J96.01 Acute respiratory failure with hypoxia; R65.21 Severe sepsis with septic shock; J69.0 Pneumonitis due to inhalation of food and vomit; K29.01 Acute gastritis with bleeding; I63.9 Cerebral infarction, unspecified; I21.4 Non-ST elevation (NSTEMI) myocardial infarction; C18.9 Malignant neoplasm of colon, unspecified; I13.2 Hypertensive heart and chronic kidney disease with heart failure and with stage 5 chronic kidney disease, or end stage renal disease; K31.1 Adult hypertrophic pyloric stenosis; E87.2 Acidosis; Z68.41 Body mass index [BMI] 40.0-44.9, adult; H54.62 Unqualified visual loss, left eye, normal vision right eye; E11.51 Type 2 diabetes mellitus with diabetic peripheral angiopathy without gangrene; J44.9 Chronic obstructive pulmonary disease, unspecified; E11.36 Type 2 diabetes mellitus with diabetic cataract; E87.6 Hypokalemia; E78.5 Hyperlipidemia, unspecified; F03.90 Unspecified dementia, unspecified severity, without behavioral disturbance, psychotic disturbance, mood disturbance, and anxiety; E78.1 Pure hyperglyceridemia; E66.01 Morbid (severe) obesity due to excess calories; E11.22 Type 2 diabetes mellitus with diabetic chronic kidney disease; I25.10 Atherosclerotic heart disease of native coronary artery without angina pectoris; L89.159 Pressure ulcer of sacral region, unspecified stage; I48.91 Unspecified atrial fibrillation; I50.9 Heart failure, unspecified; I27.20 Pulmonary hypertension, unspecified; E05.90 Thyrotoxicosis, unspecified without thyrotoxic crisis or storm; D64.9 Anemia, unspecified; Z60.2 Problems related to living alone; B95.61 Methicillin susceptible Staphylococcus aureus infection as the cause of diseases classified elsewhere; I95.9 Hypotension, unspecified; Z66 Do not resuscitate; G89.29 Other chronic pain; Z99.2 Dependence on renal dialysis; Z95.5 Presence of coronary angioplasty implant and graft; Z90.710 Acquired absence of both cervix and uterus; Z90.49 Acquired absence of other specified parts of digestive tract; Z87.891 Personal history of nicotine dependence; I25.2 Old myocardial infarction; Z87.11 Personal history of peptic ulcer disease; Z86.74 Personal history of sudden cardiac arrest; Z86.73 Personal history of transient ischemic attack (TIA), and cerebral infarction without residual deficits; Z86.010 Personal history of colon polyps; Z85.038 Personal history of other malignant neoplasm of large intestine; Z80.1 Family history of malignant neoplasm of trachea, bronchus and lung; Z79.899 Other long term (current) drug therapy; Z88.0 Allergy status to penicillin; Z88.6 Allergy status to analgesic agent; Z78.1 Physical restraint status
CPT/HCPCS: 31500; 36415; 36569; 36600; 70450; 70551; 71045; 74018; 74176; 76937; 80048; 80053; 80061; 80076; 80202; 80307; 80329; 82140; 82270; 82375; 82550; 82553; 82607; 82746; 82805; 82962; 83036; 83605; 83690; 83735; 83880; 84100; 84134; 84145; 84439; 84443; 84478; 84481; 84484; 85014; 85018; 85025; 85027; 85610; 85730; 86850; 86900; 86920; 87040; 87070; 87077; 87186; 87205; 88305; 88312; 88313; 93005; 93306; 93970; 94002; 94003; 94640; 96365; 96375; 99291; A4216; A6261; C1725; C1769; C1892; C1893; C9113; G0482; J0278; J0282; J0330; J1160; J1265; J1644; J1650; J1815; J1956; J2250; J2370; J2405; J2704; J3010; J3370; J3480; J3490; J7030; J7040; J7050; J7060; J7620; J8597; P9016; P9047